=== PATIENT | female | born 1970 | race Caucasian/White ===

== ENCOUNTER 2019-01-14 13:52 | Emergency (ER) | payer BC, SELFPAY ==
[2019-01-14 13:56] VITALS: BP 120/55; PULSE 72; RESP 16; TEMP 36.5; O2SAT 100
--- NOTE | 2019-01-14 14:09 | W.ED.GENAD ---
Discharge Plan Disposition Patient Disposition: HOME Condition: Improving Discharge Details Chief Complaint: Orthopedic Clinical Impression: Contusion of foot Reason For Visit: left foot Primary Care Provider: Josiane Dickerson ED Provider: Deon Interiano Home Meds and New Rx's Prescriptions: Continued Centrum Complete 1 EACH tablet 1 tab PO daily prn RF: 0 ibuprofen 200 MG capsule 800 mg PO BID PRN RF: 0 metronidazole [MetroCream] 45 GM cream 45 gm Topical BID 30 Days Qty: 1 RF: 0 Discharge Instructions Instructions: Foot Contusion (ED) Additional Instructions: Please wear a flat hard soled shoe such as dance go clogs and/or a carbon fiber shank as an insert to your shoe to maintain a stiff sole. You will likely need to wear the hard soled shoe for 7-10 days time. May maida tape the great toe to the second toe for stability and comfort. You will likely lose the nail of the great toe as we discussed. Elevate and ice to reduce discomfort. Return to the emergency room for any acute concerns Medical Decision Making 48-year-old female with contusion of the left foot in a insulated winter boot when she was entangled in the netting while watching his ski race 2 days ago. There is an axial load of the foot she has had some discomfort with walking. Mild bruising present. Referred for x-ray which does not reveal underlying acute bony injury. Consistent with contusion and strain. Discussed with her managements including a flat soled shoe. She may return to use of ski boot as tolerated. HPI General Mode of arrival: ambulatory. Date/Time Provider Initiated Documentation: 01/14/19 14:02. Limitations to Documentation: no limitations. Information obtained by: patient. History of Present Illness Quality is described as dull and constant, and is localized to the left and lower extremity. Patient reports no radiation. Patient started experiencing this day(s) and it has been constant. Rest improves symptom(s), Movement worsens symptoms . Patient did receive the following treatments prior to arrival, none Related Data Home Medications Medication Instructions Recorded Confirmed Centrum Complete 1 tab PO daily prn 11/11/13 01/14/19 ibuprofen 800 mg PO BID PRN tab-cap 11/17/16 01/14/19 metronidazole [MetroCream] 45 gm TOPICAL BID 30 Days #1 script 12/12/17 01/14/19 Previous Rx's Medication Instructions Recorded metronidazole [MetroCream] 45 gm TOPICAL BID 30 Days #1 script 12/12/17 Allergies Allergy/AdvReac Type Severity Reaction Status Date / Time No Known Allergies Allergy Unverified 12/12/17 10:29 General Stated Complaint: Orthopedic PADMA: 4 Review of Systems Review of Systems Four systems reviewed and otherwise negative [facility] Medical History Diastasis recti Menorrhagia Umbilical hernia Surgical History section Endometrial Ablation Endometrial Biopsy (12/15/11) Repair of umbilical hernia Family History Mother Hyperlipidemia Father Hyperlipidemia Stroke Brother No problems noted. Grandfather No problems noted. Grandfather No problems noted. Grandmother No problems noted. Grandmother No problems noted. Son ADHD Daughter ADD (attention deficit disorder) Daughter Dyslexia ADHD Social History Smoking and Tabacco status: Never Exam Narrative Exam Narrative: GEN: awake, alert, oriented 3. Pleasant, well groomed, interactive. HEAD: Normocephalic, atraumatic ENT: Mucous membranes moist, oropharynx unremarkable, External ear exam unremarkable EYES: PERRL, EOMI EXT: Full ROM, no edema, no rash. Ecchymosis of the left great toe dorsal surface and mild tenderness. Mild swelling left lateral foot and mild left lateral black oxide coating equipment tender Neuro: Grossly normal neurologic exam, conversant, interactive. Psych: Speech fluent, thoughts congruent, affect normal Course Vital Signs Temperature 36.5 C 01/14/19 13:56 Pulse 72 01/14/19 13:56 Respiratory Rate 16 01/14/19 13:56 Blood Pressure 120/55 L 01/14/19 13:56 Pulse Oximetry 100 01/14/19 13:56 Temperature 36.5 C 01/14/19 13:56 Temperature Source Temporal Artery Scan 01/14/19 13:56 Pulse 72 01/14/19 13:56 Respiratory Rate 16 01/14/19 13:56 Respiratory Effort 01/14/19 14:01 Blood Pressure 120/55 L 01/14/19 13:56 Blood Pressure Position Sitting 01/14/19 13:56 Pulse Oximetry 100 01/14/19 13:56 Oxygen Delivery Method Room Air 01/14/19 13:56 Oxygen Flow Rate 0 01/14/19 13:56
--- NOTE | 2019-01-14 14:33 | DI.RAD_ITS ---
SYMPTOMS/DIAGNOSIS: AXIAL LOAD TO FOOT LEFT FOOT: No fracture or dislocation is seen. IMPRESSION: Negative left foot.
== END 2019-01-14 14:51 | disposition home or self-care (01) ==
PROVIDERS: Emergency Provider Emergency Medicine; PCP Family Medicine
DX: S90.31XA Contusion of right foot, initial encounter (principal); W49.09XA Other specified item causing external constriction, initial encounter
CPT/HCPCS: 99283; 73630; 99282

== ENCOUNTER 2019-03-04 00:47 | Outpatient (CLI) | payer BC, SELFPAY ==
--- NOTE | 2019-03-04 06:08 | DI.US_ITS ---
SYMPTOM/DIAGNOSIS: ENLARGED LT LOBE OF THYROID, THYROID NODULE, R04.1 THYROID ULTRASOUND: The right lobe measures 4.9 by 2.4 by 1.9 cm. The left lobe measures 4.4 by 2 by 2.7 cm. Two nodules are seen in the right lobe, one measuring 9 mm. at the upper pole and the second measuring 1.5 cm. in the mid portion of the gland. The second nodule shows a coarse central calcification and shows mildly heterogeneous echotexture. A 1.9 cm., smoothly marginated nodule is noted at the lower pole of the left lobe. The echotexture is mildly heterogeneous. An additional 8 mm. nodule is also seen medially near the lower pole. The isthmus is somewhat thickened at 5.5 mm. IMPRESSION: Bilateral thyroid nodules. Biopsy of the two larger nodules is recommended given the heterogeneous echogenicity and calcifications.
--- NOTE | 2019-03-04 10:30 | DI.MAMMO_ITS ---
SYMPTOM/DIAGNOSIS: SCREENING, Z12.31 MAMMOGRAMS: Mammograms were interpreted according to the usual protocol including computer analysis with CAD system, tomosynthesis and C view imaging. Comparison is made with exams from [id number]. The breasts are composed of heterogeneously dense fibroglandular tissue. Breast density, category C. No suspicious masses or suspicious microcalcifications are seen. There has been no significant change. IMPRESSION: Category 1, negative mammogram. Yearly screening mammography is recommended. [facility] ASSESSMENT OF FINDINGS: Negative. Category 1. Patient will receive a letter notifying them of these results. Bi-RADS category C. The breasts are heterogeneously dense, which may obscure small masses.
== END 2019-03-04 01:07 ==
PROVIDERS: PCP Family Medicine; Visit Provider Family Medicine
DX: Z12.31 Encounter for screening mammogram for malignant neoplasm of breast (principal); E04.2 Nontoxic multinodular goiter
CPT/HCPCS: 77063; 77067; 76536

== ENCOUNTER 2019-03-04 08:38 | Outpatient (CLI) | payer BC, SELFPAY ==
[2019-03-04 10:21] LABS: ALT 25 U/L (12-78); AST 18 U/L (15-37); Albumin 3.7 g/dL (3.4-5.0); Alkaline Phosphatase 44 U/L (46-116); Anion Gap 5.8 mmol/L (3-11); BUN 13 mg/dL (7-18); Bilirubin, Total 0.4 mg/dL (0.2-1.0); CO2 29.2 mmol/L (21.0-32.0); CREATININE 0.65 mg/dL (0.55-1.02); Calcium 8.7 mg/dL (8.5-10.1); Chloride 104 mmol/L (98-107); Cholesterol 259 mg/dL (50-200); Glucose 93 mg/dL (70-100); HDL Cholesterol 67 mg/dL (40-60); LDL CHOLESTEROL 167 mg/dL (<100); Potassium 4.2 mmol/L (3.5-5.1); Sodium 139 mmol/L (136-145); TSH (W/Ref FT4) 2.12 uIU/mL (0.358-3.74); Total Protein 6.6 g/dL (6.4-8.2); Triglyceride 68 mg/dL (30-150)
== END 2019-03-04 08:58 ==
PROVIDERS: PCP Family Medicine; Visit Provider Family Medicine
DX: Z00.00 Encounter for general adult medical examination without abnormal findings (principal); E78.00 Pure hypercholesterolemia, unspecified; E04.1 Nontoxic single thyroid nodule
CPT/HCPCS: 36415; 80053; 80061; 83721; 84443

== ENCOUNTER 2019-03-08 13:41 | Outpatient (REF) | payer BC, SELFPAY ==
--- NOTE | 2019-03-08 13:20 | PAPFT_PTH ---
PATIENT: Yumi Mckenzie LOC: [facility] U#:[id number] AGE/SX: 49/F ROOM: RE03/08/[address]: Yesi Hsu MD : 1970 BED: DIS: 03/08/2019 SPEC #: [id number] RECD: 03/08/19 17:18 STATUS: ROBERT REAzra #: [id number] IVANA: 03/08/19 13:[address]: Yesi Hsu DEPT: [facility] Cytology RECD BY: Mehul Serna ENTERED: 03/08/19 17:19 SP TYPE: PAPFT OTHR DR: Vinod Durant MD Tissues: 1 - CX/ENDOCX FOR PAP SMEARS Procedures: PAP THIN PREP/[facility] Screening HPV DNA PROBE Comments: [id number]
== END 2019-03-08 14:01 ==
LOC: LBN 13:41
PROVIDERS: PCP Family Medicine; Visit Provider Obstetrics & Gynecology
DX: Z12.4 Encounter for screening for malignant neoplasm of cervix (principal); Z11.51 Encounter for screening for human papillomavirus (HPV)
CPT/HCPCS: 88142; 87624

== ENCOUNTER 2020-03-10 07:03 | Outpatient (CLI) | payer MEDICAID, SELFPAY ==
[2020-03-10 15:05] LABS: FREE T4 0.99 ng/dL (0.76-1.46); TSH 4.27 uIU/mL (0.36-3.74)
[2020-03-11 18:13] LABS: Thyroglobulin Antibody <1.8 IU/mL (<4.0); Thyroglobulin Tumor Marker 0.4 ng/mL
== END 2020-03-10 07:23 ==
PROVIDERS: PCP Family Medicine; Visit Provider Family Medicine
DX: C73 Malignant neoplasm of thyroid gland (principal); L71.9 Rosacea, unspecified
CPT/HCPCS: 36415; 84432; 84439; 84443; 86800

== ENCOUNTER 2020-04-24 03:45 | Outpatient (CLI) | payer MEDICAID, SELFPAY ==
[2020-04-24 09:48] LABS: FREE T4 1.05 ng/dL (0.76-1.46)
== END 2020-04-24 04:05 ==
PROVIDERS: PCP Family Medicine; Visit Provider Family Medicine
DX: C73 Malignant neoplasm of thyroid gland (principal)
CPT/HCPCS: 36415; 84439; 84443

== ENCOUNTER 2020-07-03 09:09 | Outpatient (CLI) | payer MEDICAID, SELFPAY ==
[2020-07-06 12:39] LABS: SARS-CoV-2 RNA Undetected (Undetected); SARS-CoV-2 Specimen Source Nasopharynx
== END 2020-07-03 09:29 ==
PROVIDERS: PCP Family Medicine; Visit Provider Family Medicine
DX: Z11.59 Encounter for screening for other viral diseases (principal)
CPT/HCPCS: U0003

== ENCOUNTER 2020-08-31 11:16 | Outpatient (REF) | payer MEDICAID, SELFPAY ==
[2020-08-31 13:53] LABS: TSH 0.97 uIU/mL (0.36-3.74)
[2020-09-02 11:56] LABS: Thyroglobulin Antibody <1.8 IU/mL (<1.8); Thyroglobulin Tumor Marker 0.1 ng/mL
== END 2020-08-31 11:36 ==
LOC: LBN 11:16
PROVIDERS: PCP Family Medicine; Visit Provider Family Medicine
DX: C73 Malignant neoplasm of thyroid gland (principal)
CPT/HCPCS: 84432; 84443; 86800

== ENCOUNTER 2021-01-18 11:48 | Outpatient (CLI) | payer MEDICAID, SELFPAY ==
--- NOTE | 2021-01-18 10:30 | DI.RAD_ITS ---
EXAM: XR KNEE RT 3V AP,LAT,MATHEUS CLINICAL HISTORY: significant pain with activity, M25.561, G89.29. TECHNIQUE: 2D digital imaging was performed. COMPARISON: No exams were available for comparison FINDINGS: There is severe narrowing of the patellofemoral joint. There are subchondral cysts on both sides of the joint. There is mild periarticular spurring. No joint effusion is seen. There is mild spurring from the femoral condyles and tibial plateaus and minimal medial femoral tibial joint space narrowin g. IMPRESSION: Severe patellofemoral degenerative changes. DATA REPOSITORY: RADIATION DOSE DELIVERED:
--- NOTE | 2021-01-18 10:30 | DI.RAD_ITS ---
EXAM: XR KNEE LT 3V AP,LAT,MATHEUS CLINICAL HISTORY: significant pain with activity, M25.562, G89.29. TECHNIQUE: 2D digital imaging was performed. COMPARISON: CR XR KNEE RT 3V AP,LAT,MATHEUS from 01/18/2021 FINDINGS: There is mild narrowing of the medial femoral tibial joint space. There is spurring from the medial femoral condyle and medial tibial plateau. There is narrowing of the patellofemoral joint and mild s purring. No joint effusion is seen. IMPRESSION: degenerative changes greatest of patellofemoral joint. DATA REPOSITORY: RADIATION DOSE DELIVERED:
== END 2021-01-18 12:08 ==
PROVIDERS: PCP Family Medicine; Visit Provider Nurse Practitioner Family
DX: M17.0 Bilateral primary osteoarthritis of knee (principal)
CPT/HCPCS: 73562

== ENCOUNTER 2021-07-02 02:01 | Outpatient (CLI) | payer MEDICAID, SELFPAY ==
[2021-07-02 12:27] LABS: TSH 0.03 uIU/mL (0.36-3.74)
== END 2021-07-02 02:02 | disposition home or self-care (01) ==
LOC: LOS 02:04
PROVIDERS: PCP Nurse Practitioner Family; Visit Provider Nurse Practitioner Family
DX: E03.9 Hypothyroidism, unspecified (principal)
CPT/HCPCS: 36415; 84443

== ENCOUNTER 2021-09-16 03:00 | Outpatient (CLI) | payer MEDICAID, SELFPAY ==
[2021-09-16 17:52] LABS: TSH 0.24 uIU/mL (0.36-3.74)
== END 2021-09-16 03:01 | disposition home or self-care (01) ==
LOC: LBO 03:00
PROVIDERS: PCP Nurse Practitioner Family; Visit Provider Nurse Practitioner Family
DX: E03.9 Hypothyroidism, unspecified (principal)
CPT/HCPCS: 36415; 84443

== ENCOUNTER 2021-12-14 02:16 | Outpatient (CLI) | payer MEDICAID, SELFPAY ==
[2021-12-14 14:36] LABS: TSH 0.68 uIU/mL (0.36-3.74)
== END 2021-12-14 02:17 | disposition home or self-care (01) ==
LOC: LBO 02:16
PROVIDERS: PCP Nurse Practitioner Family; Visit Provider Nurse Practitioner Family
DX: E03.9 Hypothyroidism, unspecified (principal)
CPT/HCPCS: 36415; 84443

== ENCOUNTER → 2022-02-15 02:40 | Outpatient (CLI) | payer MEDICAID, SELFPAY | PROVIDERS: PCP Nurse Practitioner Family; Visit Provider Nurse Practitioner Women's Health ==

== ENCOUNTER → 2022-04-12 01:19 | Outpatient (CLI) | payer MEDICAID, SELFPAY ==
--- NOTE | 2022-04-12 08:33 | DI.MAMMO_ITS ---
Exam(s) MAMMO SCREENING EXAM: MAMMO SCREENING CLINICAL HISTORY: screening,z12.39. TECHNIQUE: Bilateral full field digital CC and MLO mammographic images were obtained with 3D tomosyn thesis and utilizing computer aided detection (CAD). COMPARISON: Prior mammograms were reviewed, the most recent being February 2019. FINDINGS: There has been no significant change in the appearance and distribution of the fibroglandular tissue which is again noted be moderately dense, this somewhat decreasing the sensitivity of the mammogram f or finding hidden underlying lesions There are no new spiculated masses nor malignant appearing microcalcification groups. A nodule located superomedially in the left breast is unchanged from prior studies and therefore derek gn. There is no significant architectural distortion nor skin thickening-retraction. IMPRESSION: Stable benign findings. No radiographic evidence of malignancy. BI-RADS Category 2 - Benign Findings Breast Density - Category C - Heterogeneously dense Breast density Category C or D implies that the patient has dense breast tissue. Dense breast tissue can make it harder to find cancer on a mammogram. Dense breast tissue is also associated with an incr eased risk of breast cancer. This information about the result of the mammogram report was provided to the patient to raise their awareness. Use this report when you speak with the patient about their risks for breast cancer, which includes their family history. At that time, you may recommend additional screening tests (Ultrasoun d or MRI) as these tests may add significant information. A negative radiographic report should not delay biopsy if a dominant or clinically suspicious mass is present. Up to ten percent of cancers are not identified on mammography. A negative report may reinforce clinical impression. Adenosis and dense breasts may obscure an underlying neoplasm. False positive reports average 6 to 10%. Patient will receive a letter notifying them of these results.
== END ==
PROVIDERS: PCP Nurse Practitioner Family; Visit Provider Nurse Practitioner Women's Health
DX: Z12.31 Encounter for screening mammogram for malignant neoplasm of breast (principal)
CPT/HCPCS: 77063; 77067

== ENCOUNTER 2022-06-21 03:32 | Outpatient (CLI) | payer MEDICAID, SELFPAY ==
[2022-06-21 13:27] LABS: Hemoglobin A1C 5.5 % (<5.7)
[2022-06-21 13:29] LABS: Calculated LDL 154 mg/dL (<100); Cholesterol 246 mg/dL (<200); HDL Cholesterol 86 mg/dL (40-60); Triglyceride 30 mg/dL (<150)
[2022-06-22 13:44] LABS: Lyme Ab w Rflx to Lyme Confirm Negative (Negative)
[2022-06-24 15:51] LABS: Anaplasma phagocytophilum Negative (Negative); B. miyamotoi PCR Negative (Negative); Babesia divergens/MO-1 Negative (Negative); Babesia duncani Negative (Negative); Babesia microti Negative (Negative); Ehrlichia chaffeensis Negative (Negative); Ehrlichia ewingii/canis Negative (Negative); Ehrlichia muris eauclairensis Negative (Negative)
== END 2022-06-21 03:33 | disposition home or self-care (01) ==
PROVIDERS: PCP Nurse Practitioner Family; Visit Provider Nurse Practitioner Family
DX: Z13.220 Encounter for screening for lipoid disorders (principal); Z13.1 Encounter for screening for diabetes mellitus; M25.59 Pain in other specified joint
CPT/HCPCS: 36415; 80061; 87798; 83036; 86618

== ENCOUNTER 2023-06-26 03:51 | Outpatient (CLI) | payer MEDICAID, SELFPAY ==
[2023-06-26 13:43] LABS: TSH (W/Ref FT4) 0.79 uIU/mL (0.36-3.74)
== END 2023-06-26 03:52 | disposition home or self-care (01) ==
LOC: LBO 03:51
PROVIDERS: PCP Nurse Practitioner Family; Visit Provider Nurse Practitioner Family
DX: E03.9 Hypothyroidism, unspecified (principal)
CPT/HCPCS: 36415; 84443

== ENCOUNTER 2023-08-21 13:53 | Outpatient (REF) | payer MEDICAID, SELFPAY ==
--- NOTE | 2023-08-21 13:30 | PAPFT_PTH ---
PATIENT: Yumi Mckenzie LOC: [facility] U#:[id number] AGE/SX: 53/F ROOM: RE08/21/[address]: Mary Ellen Rahman NP : 1970 BED: DIS: 08/21/2023 SPEC #: [id number] RECD: 08/22/23 15:36 STATUS: ROBERT REAzra #: [id number] IVANA: 08/21/23 13:[address]: Mary Ellen Rahman NP DEPT: [facility] Cytology RECD BY: Ariane Soto ENTERED: 08/22/23 15:37 SP TYPE: PAPFT OTHR DR: Doug Villegas NP Tissues: 1 - CX/ENDOCX FOR PAP SMEARS Procedures: PAP THIN PREP/[facility] Screening HPV DNA PROBE Comments: [id number]
== END 2023-08-21 13:54 | disposition home or self-care (01) ==
LOC: LBN 13:53
PROVIDERS: PCP Nurse Practitioner Family; Visit Provider Nurse Practitioner Women's Health
DX: Z12.31 Encounter for screening mammogram for malignant neoplasm of breast (principal)
CPT/HCPCS: 88142; 87624

== ENCOUNTER 2024-09-18 01:56 | Outpatient (CLI) | payer BC, MEDICAID, SELFPAY ==
--- NOTE | 2024-09-18 12:15 | DI.MAMMO_ITS ---
Exam(s) MAMMO SCREENING EXAM: MAMMO SCREENING CLINICAL HISTORY: screening TECHNIQUE: Bilateral full field digital CC and MLO mammographic images were obtained with 3D tomosyn thesis and utilizing computer aided detection (CAD). COMPARISON: Available for comparison. FINDINGS: Masses/Architectural Distortion: None seen. Microcalcifications: No suspicious pleomorphic-type are seen. Skin Thickening/Nipple Retraction: None. IMPRESSION: 1. No significant interval change with no specific features of malignancy noted. 2. Unless there is more urgent need, screening mammography is recommended, as per [employer] guidelines. BI-RADS Category 1 - Negative Breast Density - Category C - Heterogeneously dense Breast density category C or D implies that the patient has dense breast tissue. Dense breast tissue is very common and is not abnormal but dense breast tissue can make it harder to find cancer on a ma mmogram. Also, dense breast tissue may increase their breast cancer risk. This information about the result of the mammogram report was provided to the patient to raise their awareness. Use this report when you speak with the patient about their risks for breast cancer, which includes their family hist ory. At that time, you may recommend for more screening tests (Ultrasound or MRI) as they might be us eful based on their risk. A negative radiographic report should not delay biopsy if a dominant or clinically suspicious mass is present. Up to ten percent of cancers are not identified on mammography. A negative report may reinforce clinical impression. Adenosis and dense breasts may obscure an underlying neoplasm. False positive reports average 6 to 10%. Patient will receive a letter notifying them of these results.
== END 2024-09-18 02:16 ==
LOC: DI 01:56
PROVIDERS: PCP Nurse Practitioner Family; Visit Provider Nurse Practitioner Women's Health
DX: Z12.31 Encounter for screening mammogram for malignant neoplasm of breast (principal); R92.333 Mammographic heterogeneous density, bilateral breasts
CPT/HCPCS: 77063; 77067

== ENCOUNTER 2025-03-05 13:03 | Outpatient (CLI) | payer MEDICAID, SELFPAY ==
[2025-03-05 16:50] LABS: Hemoglobin A1C 5.2 % (<5.7)
[2025-03-05 17:43] LABS: Calculated LDL 192 mg/dL (<100); Cholesterol 293 mg/dL (<200); HDL Cholesterol 89 mg/dL (>or=50); Triglyceride 64 mg/dL (<150)
[2025-03-05 18:00] LABS: FREE T4 0.97 ng/dL (0.76-1.46)
== END 2025-03-05 13:04 | disposition home or self-care (01) ==
LOC: LBO 03-06 13:03
PROVIDERS: PCP Nurse Practitioner Family; Visit Provider Nurse Practitioner Family
DX: Z13.1 Encounter for screening for diabetes mellitus (principal); E03.9 Hypothyroidism, unspecified; Z13.220 Encounter for screening for lipoid disorders
CPT/HCPCS: 36415; 80061; 83036; 84439; 84443

== ENCOUNTER 2025-10-07 13:23 | Outpatient (CLI) | payer MEDICAID, SELFPAY ==
[2025-10-07 13:37] LABS: HCT 37.9 % (36.0-46.0); HGB 13.0 g/dL (11.2-15.7); MCH 31.5 pg (27.0-33.0); MCHC 34.3 % (32.0-36.0); MCV 92 fL (80-95); MPV 8.7 fL (8.0-11.0); Platelet Count 271 10^3/uL (130-400); RBC 4.13 10^6/uL (3.93-5.22); RDW 12.1 % (11.7-14.6); RDW-SD 41.5 fL; WBC 4.21 10^3/uL (4.4-10.8)
[2025-10-07 14:22] LABS: ALT 17 U/L (10-49); AST 23 U/L (<34); Albumin 4.5 g/dL (3.2-5.0); Alkaline Phosphatase 50 U/L (46-116); Anion Gap 7.9 mmol/L (3-11); BUN 9 mg/dL (9-23); Bilirubin, Total 0.60 mg/dL (0.2-1.2); CO2 27.1 mmol/L (20.0-31.0); Calcium 9.1 mg/dL (8.3-10.6); Chloride 107 mmol/L (98-107); Glucose 86 mg/dL (74-106); Potassium 3.9 mmol/L (3.5-5.1); Sodium 142 mmol/L (136-145); Total Protein 7.3 g/dL (5.7-8.2)
[2025-10-07 14:25] LABS: Vitamin D 25 Total 62 ng/mL (30-100)
[2025-10-07 14:26] LABS: TSH (W/Ref FT4) 0.46 uIU/mL (0.55-4.78)
== END 2025-10-07 13:24 | disposition home or self-care (01) ==
LOC: LBO 13:24
PROVIDERS: PCP Nurse Practitioner Family; Visit Provider Nurse Practitioner Women's Health
DX: Z13.21 Encounter for screening for nutritional disorder (principal); R63.5 Abnormal weight gain; C73 Malignant neoplasm of thyroid gland; Z01.419 Encounter for gynecological examination (general) (routine) without abnormal findings
CPT/HCPCS: 36415; 80053; 82306; 85027; 84439; 84443